=== PATIENT | male | born 2000 | race Caucasian/White ===

== ENCOUNTER 2019-11-28 19:40 | Emergency (ER) | payer OTHER ==
[2019-11-28 19:49] VITALS: BP 110/69; RESP 16; TEMP 98.5
--- NOTE | 2019-11-28 20:52 | ED ---
General Adult HPI - General Chief complaint: Upper Respiratory Infection Stated complaint: sore throat/congestion Time Seen by Provider: 11/28/19 20:20 Source: patient, RN notes reviewed, old records reviewed Mode of arrival: ambulatory Limitations: no limitations - History of Present Illness Initial comments: 19-year-old male patient presents to ED with complaining of sore throat. Has been ongoing for 2 days. Patient reports that he was recently in [place] and friends are concerned he may have coronavirus. Patient reports that he did not have any travel [place]. Reports that he did not have any known exposure to coronavirus. Denies any cough. Denies any fever. He does not believes that he has this virus however his friends were concerned and encouraged him to get tested. Systemic: Pt denies fatigue, fever/chills, rash. Pt denies weakness, night sweats, weight loss. Neuro: Pt denies headache, visual disturbances, syncope or pre-syncope. HEENT: Pt denies ocular discharge or irritation, otalgia, rhinorrhea, pharyngitis or notable lymphadenopathy. Cardiopulmonary: Pt denies chest pain, SOB, heart palpitations, dyspnea on exertion. Abdominal/GI: Pt denies abdominal pain, n/v/d. : Pt denies dysuria, burning w/ urination, frequency/urgency. Denies new onset urinary or bowel incontinence. MSK: Pt denies myalgia, loss of strength or function in extremities. Neuro: Pt denies new onset weakness, paresthesias. - Related Data Allergies Allergy/AdvReac Type Severity Reaction Status Date / Time No Known Allergies Allergy Verified 11/28/19 19:47 Review of Systems ROS Statement: Those systems with pertinent positive or pertinent negative responses have been documented in the HPI. ROS Other: All systems not noted in ROS Statement are negative. Past Medical History Past Medical History: No Reported History History of Any Multi-Drug Resistant Organisms: None Reported Past Surgical History: No Surgical Hx Reported Past Psychological History: No Psychological Hx Reported Smoking Status: Current every day smoker Past Alcohol Use History: None Reported Past Drug Use History: Marijuana General Exam - General Exam Comments Initial Comments: Constitutional: NAD, AOX3, Pt has pleasant affect. HEENT: NC/AT, trachea midline, neck supple, no lymphadenopathy. Posterior pharynx non erythematous, without exudates. External ears appear normal, without discharge. Mucous membranes moist. Eyes PERRLA, EOM intact. There is no scleral icterus. No pallor noted. Cardiopulmonary: RRR, no murmurs, rubs or gallops, no JVD noted. Lungs CTAB in anterior and posterior mujica. No peripheral edema. Abdominal exam: Abdomen soft and non-distended. Abdomen non-tender to palpation in all 4 quadrants. Bowel sounds active in LLQ. No hepatosplenomegaly. No ecchymosis Neuro: CN II-XII grossly intact. No nuchal rigidity. No raccon eyes, no valdez sign, no hemotympanum. No cervical spinal tenderness. MSK: No posterior calf tenderness bilaterally, homans sign negative bilaterally. Posterior tibialis and radial pulse +2 bilaterally. Sensation intact in upper and lower extremities. Full active ROM in upper and lower extremities, 5/5 stregnth. Limitations: no limitations Course Vital Signs 11/28/19 11/28/19 19:45 20:49 Temperature 98.5 F Pulse Rate 85 88 Respiratory 16 16 Rate Blood Pressure 110/69 O2 Sat by Pulse 10 L 98 Oximetry Medical Decision Making - Medical Decision Making 19-year-old male patient presents to ED with complaining of sore throat. Has been ongoing for 2 days. Patient reports that he was recently in [place] and friends are concerned he may have coronavirus. Patient reports that he did not have any travel [place]. Reports that he did not have any known exposure to coronavirus. Denies any cough. Denies any fever. He does not believes that he has this virus however his friends were concerned and encouraged him to get tested. Patient will signs are stable, afebrile. Initial pulse oxidation is incurrently documented. Physical exam not demonstrate acute pathology. Influenza group A strep is negative. Patient upper extremities and viral pharyngitis X syndrome. Will discharge to follow up with primary care grandma return to ER if condition worsens. Case discussed with Dr. Freeman. - Lab Data Lab Results 11/28/19 11/28/19 Range/Units 20:40 20:40 Influenza Type A RNA Not Detected (Not Detectd) Influenza Type B (PCR) Not Detected (Not Detectd) Group A Strep Rapid Negative (Negative) Disposition Clinical Impression: Pharyngitis Disposition: HOME SELF-CARE Condition: Stable Instructions (If sedation given, give patient instructions): Pharyngitis (ED) Additional Instructions: Follow-up with primary care provider tomorrow, use Tylenol and ibuprofen for discomfort. Return to ER if condition worsens. Is patient prescribed a controlled substance at d/c from ED?: No Referrals: None,Stated [Primary Care Provider] - 1-2 days [facility] [NON-STAFF] - 1-2 days
[2019-11-28 21:18] VITALS: PULSE 88
== END 2019-11-28 22:14 | disposition home or self-care (01) ==
LOC: EC 19:40
DX: J02.9 Acute pharyngitis, unspecified (principal); B08.8 Other specified viral infections characterized by skin and mucous membrane lesions; F17.200 Nicotine dependence, unspecified, uncomplicated
CPT/HCPCS: 87081; 87430; 87502; 99284

== ENCOUNTER 2021-01-31 23:58 | Emergency (ER) | payer OTHER ==
[2021-02-01 00:11] VITALS: BP 125/70; PULSE 91; RESP 18; TEMP 98
--- NOTE | 2021-02-01 01:28 | ED ---
Male Urogenital HPI - General Chief complaint: Urogenital Stated complaint: req STD testing Time Seen by Provider: 02/01/21 00:51 Source: patient Mode of arrival: ambulatory - History of Present Illness Initial comments: 20 year-old male patient presents to the emergency department requesting STI testing. States his girlfriend is making him come in. States that he has had some sores in his mouth for the last few days. States he has been eating more citrus fruits lately. He denies any dysuria, urinary urgency, or urinary frequency. Denies any drainage from the penis. Denies testicular pain or swelling. Denies any sores on or around his genitalia. His any fever or chills. Denies any sore throat. - Related Data Allergies Allergy/AdvReac Type Severity Reaction Status Date / Time No Known Allergies Allergy Verified 02/01/21 00:11 Review of Systems ROS Statement: Those systems with pertinent positive or pertinent negative responses have been documented in the HPI. ROS Other: All systems not noted in ROS Statement are negative. Past Medical History Past Medical History: No Reported History History of Any Multi-Drug Resistant Organisms: None Reported Past Surgical History: No Surgical Hx Reported Past Psychological History: No Psychological Hx Reported Smoking Status: Vaper Past Alcohol Use History: None Reported Past Drug Use History: Marijuana General Exam General appearance: alert, in no apparent distress ENT exam: Present: mucous membranes moist, other (canker sores noted over the lower lip, and the gums, three in total. Small discrete. No swelling.). Absent: normal exam Respiratory exam: Present: normal lung sounds bilaterally. Absent: respiratory distress, wheezes, rales, rhonchi, stridor Cardiovascular Exam: Present: regular rate, normal rhythm, normal heart sounds. Absent: systolic murmur, diastolic murmur, rubs, gallop, clicks Neurological exam: Present: alert, oriented X3, CN II-XII intact Psychiatric exam: Present: normal affect, normal mood Skin exam: Present: warm, dry, intact, normal color. Absent: rash Course Vital Signs 02/01/21 00:08 Temperature 98.0 F Pulse Rate 91 Respiratory 18 Rate Blood Pressure 125/70 O2 Sat by Pulse 98 Oximetry Medical Decision Making - Medical Decision Making 20-year-old male patient presented to the emergency department requesting STD testing. States his girlfriend is requiring him to get tested. He is not having any symptoms. Vital signs are unremarkable. He did have 3 canker sores. We sent urine for gonorrhea and chlamydia. He is instructed to follow-up with his primary care physician for recheck in 1-2 days. Return parameters were discussed in detail. He verbalizes understanding and agrees with this plan. My attending is Dr. Sampson. Disposition Clinical Impression: Canker sore Disposition: HOME SELF-CARE Condition: Good Instructions (If sedation given, give patient instructions): Canker Sores (ED) Additional Instructions: Await urine results, this takes 3 days, they will call you if abnormal. Avoid citrusy or acidic foods. Follow up with your primary care physician for recheck in 1-2 days. Return to the emergency department for any new, worsening, or concerning symptoms. Is patient prescribed a controlled substance at d/c from ED?: No Referrals: None,Stated [Primary Care Provider] - 1-2 days Time of Disposition: 01:28
[2021-02-03 14:05] LABS: C. trachomatis,PCR Negative (Neg,Equiv); Chlamydia trachomatis Source Urine; N. gonorrhoeae,PCR Negative (Neg,Equiv); Neisseria Source Urine
== END 2021-02-01 01:51 | disposition home or self-care (01) ==
LOC: EC 23:58
DX: K12.0 Recurrent oral aphthae (principal); F12.90 Cannabis use, unspecified, uncomplicated; F17.290 Nicotine dependence, other tobacco product, uncomplicated
CPT/HCPCS: 87491; 87591; 99283

== ENCOUNTER 2024-06-21 12:21 | Emergency (ER) | payer OTHER ==
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
--- NOTE | 2024-06-21 14:16 | XR ---
EXAMINATION TYPE: XR forearm LT DATE OF EXAM: 06/21/2024 COMPARISON: NONE HISTORY: Pain Two views of the forearm demonstrate that the osseous structures appear to be intact and the joint sp aces appear to be preserved. There is no acute fracture or dislocation. IMPRESSION: 1. No acute fracture or dislocation
--- NOTE | 2024-06-21 14:18 | XR ---
EXAMINATION TYPE: XR hand complete RT DATE OF EXAM: 06/21/2024 COMPARISON: NONE HISTORY: Pain TECHNIQUE: Three views are submitted. FINDINGS: The osseous structures are intact. The joint spaces are preserved and there is no acute fracture or dislocation. IMPRESSION: 1. No definite acute fracture or dislocation if symptoms persist, follow-up study in 7 to 10 days wo uld be suggested
--- NOTE | 2024-06-21 14:19 | XR ---
EXAMINATION TYPE: XR knee complete LT DATE OF EXAM: 06/21/2024 COMPARISON: NONE HISTORY: Pain TECHNIQUE: Three views are submitted. FINDINGS: Joint spaces are preserved. Osseous structures are intact. No acute fracture seen. Trace amount of fluid in the suprapatellar bursa. Tiny calcification ossification on the oblique view adjacent media l femoral condyle is nonspecific and IMPRESSION: 1. No acute fracture or dislocation.
--- NOTE | 2024-06-21 14:22 | XR ---
EXAMINATION TYPE: XR Hip LT and AP Pelvis DATE OF EXAM: 06/21/2024 COMPARISON: NONE HISTORY: Pain TECHNIQUE: A single AP view of the pelvis is obtained. Two views of the left hip are obtained. FINDINGS: There is no acute fracture/dislocation evident in the pelvis. The hip and sacroiliac join ts appear symmetric and unremarkable. There is mild hypertrophy of the lateral margin of the acetabu lum bilaterally. Slightly lobulated contour to the femoral head and neck region. The right could be r elated to exostosis or femoral acetabular impingement. The overlying soft tissue appears unremarkable . Two views of the hip show no acute fracture or dislocation. No focal lytic or sclerotic lesion seen in the proximal left femur. The overlying soft tissue is unremarkable. IMPRESSION: There is no acute fracture or dislocation in the pelvis or left hip.
[2024-06-21 14:37] VITALS: RESP 18; TEMP 98.3
[2024-06-21] MEDS: DIPH,PERTUS(ACELL)TETVAC-LF 0.5 ML VIAL IM ONE (14:40)
[2024-06-21] MEDS: CEPHALEXIN 500 MG CAP PO STA (15:39)
[2024-06-21] MEDS: KETOROLAC 15 MG/ML 1 ML VIAL IM STA (15:39)
[2024-06-21] MEDS: ACETAMINOPHEN TAB 500 MG TAB PO STA (15:40)
[2024-06-21 16:15] VITALS: BP 126/70; PULSE 86
== END 2024-06-21 16:21 | disposition home or self-care (01) ==
LOC: EC 12:21
DX: V89.2XXA Person injured in unspecified motor-vehicle accident, traffic, initial encounter
CPT/HCPCS: 73502; 90471; 90715; 96372; 99284